=== PATIENT | female | born 1975 | race Caucasian/White ===

== ENCOUNTER 2021-08-30 11:42 | Inpatient (IN) ==
[2021-08-30 14:33] LABS: Basophils # (auto) 0.02 K/uL (0-0.2); Basophils % (auto) 0.1 %; Eosinophils # (auto) 0.04 K/uL (0-0.5); Eosinophils % (auto) 0.3 %; Hematocrit (blood only) 41.7 % (37-47); Hemoglobin 13.9 g/dL (12.0-16.0); Immature Granulocytes # (auto) 0.03 K/uL (0.00-0.02); Immature Granulocytes % (auto) 0.2 %; Lymphocytes # (auto) 1.24 K/uL (1.2-3.4); Lymphocytes % (auto) 8.3 %; Mean Corpuscular Hemoglobin 31.8 pg (25-34); Mean Corpuscular Hgb Conc 33.3 g/dL (32-36); Mean Corpuscular Volume 95.4 fL (80-100); Mean Platelet Volume 10.4 fL (7.4-10.4); Monocytes # (auto) 0.84 K/uL (0.11-0.59); Monocytes % (auto) 5.6 %; Neutrophils # (auto) 12.71 K/uL (1.4-6.5); Neutrophils % (auto) 85.5 %; Platelet Count 350 K/uL (130-400); RDW Standard Deviation 42.2 fL (36.4-46.3); Red Blood Count 4.37 M/uL (4.2-5.4); White Blood Count 14.88 K/uL (4.8-10.8)
--- NOTE | 2021-08-30 14:33 | Emergency Department Note ---
Impression & Plan Acute appendicitis, Abdominal pain, Leukocytosis ED Provider Note NAME: ALEM DEL CID AGE: 45 SEX: F : 1975 ARRIVES VIA: Walk-In INFORMANT: Patient ED PROVIDER(S): Nader Devlin DO CHIEF COMPLAINT: abdominal pain HPI: Patient is a 45-year-old female who presents the ER for 60 hours worth of abdominal pain which is located throughout her entire belly. She denies any chest pain or shortness of breath. She does admit to feeling her heart race last for several minutes and then it resolved. She denies any dysuria urgency or frequency. She does feel slightly sick to her stomach. Pain throughout her belly is a 5 out of 10. She was seen at urgent care and referred in. She was given Bentyl and that has not helped either. Pain can increase to a 7 out of 10. He does feel bubbly and like gas is moving around. It also goes circumferentially around her belly to her back in the same area. ROS: See above HPI for pertinent positives & negatives. A total of 10 systems reviewed and were otherwise negative. PAST MEDICAL HISTORY:See Below PAST SURGICAL HISTORY:See Below FAMILY HISTORY:See Below SOCIAL HISTORY:See Below HOME MEDICATIONS:See Below ALLERGIES:See Below VITALS:See Below PHYSICAL EXAMINATION: GENERAL: Sitting up in bed, alert, well appearing, tearful and disheveled EYE EXAM: normal conjunctiva. OROPHARYNX: no exudate, no erythema, lips, buccal mucosa, and tongue normal and mucous membranes are moist NECK: supple, no nuchal rigidity, no adenopathy, non-tender LUNGS: Clear to auscultation. Normal chest wall mechanics HEART: no murmurs, S1 normal and S2 normal ABDOMEN: abdomen soft, non-tender, normo-active bowel sounds, no masses, no rebound or guarding. BACK: Back is symmetrical on inspection and there is no deformity, no midline tenderness, no CVA tenderness. UPPER EXTREMITIES: upper extremities are grossly normal. LOWER EXTREMITIES: No pitting edema. NEURO EXAM: Normal sensorium, cranial nerves II-XII grossly intact, normal speech, no gross weakness of arms, no gross weakness of legs. MEDICAL DECISION MAKING: Patient is a 45-year-old female who presents the ER for abdominal pain associate with nausea. IV was established blood was obtained. Labs show mild leukocytosis of 14.8 thousand. No significant anemia. BMP along with LFTs were unremarkable. Troponin was negative. Lipase unremarkable. UA was contaminated. Covid was negative. CT abdomen pelvis favors that this likely appendicitis but Dr. Francisco. Recommended ultrasound of the pelvis which was performed and unremarkable. Patient was given IV Zosyn and IV fluids. She declined pain medications. Discussed with general surgery Benny for admission. Triage Nursing notes reviewed. Limited review of prior medical records performed Vital Signs: reviewed and remarkable for tachy Differential diagnosis: Differential diagnoses includes but is not limited to gastritis, peptic ulcer disease, GERD, gallbladder disease, pancreatitis, small bowel obstruction, acute coronary syndrome, pericarditis, ischemic bowel, irritable bowel disease, irritable bowel syndrome, appendicitis, diverticulitis, malignancy, hernia, urinary tract infection, torsion, /ectopic (if female), perforation, trauma, infectious. ER treatment provided: See below Diagnostics interpreted by me: ECG: Sinus tachycardia rate of 109 PVCs Normal axis QTC [address] wave changes in the inferior Cardiac Monitoring: An order was placed for continuous cardiac monitoring. The monitor shows a rate of 102 with sinus rhythm. Laboratory studies: As stated above and show below. Imaging studies: CT abdomen pelvis suggest that this is likely appendicitis but question torsion Ultrasound showed a normal right ovary Consultation(s): Discussed with general surgery who admit the patient Procedures: none Critical Care: None Past Med/Surg History Medical History Hyperacusis of both ears PTSD (post-traumatic stress disorder) Tinnitus of right ear Surgical History History of wisdom tooth extraction Family History Grandfather Hearing loss Hypertension Stroke Father Hypertension Cancer Grandmother Hypertension Cancer Mother Cancer Other Heart disease No family history of adverse response to anesthesia No family history of bleeding disorder Social History Smoking Status: Never smoker Hx Alcohol Use: Yes Alcohol Intake Frequency Comment: 1 Glass w/ Dinner Hx Substance Use: No Preferred Language: Ghanaian Feels Safe at Home: Yes Allergies Allergies Allergy/AdvReac Type Severity Reaction Status Date / Time cat dander Allergy Unknown rash Verified 08/30/21 16:02 house dust mite Allergy Unknown runny nose Verified 08/30/21 16:02 Home Meds Home Medications Medication Instructions Recorded Confirmed acetaminophen 500 mg tablet 1,000 mg PO Q6H PRN 08/30/21 08/30/21 (Tylenol Extra Strength) cetirizine 10 mg tablet (Zyrtec) 10 mg PO DAILY 08/30/21 08/30/21 lactobacillus combination no.4 3 0 mmu cells PO DAILY 08/30/21 08/30/21 billion cell capsule (Probiotic) Previous Rx's Medication Instructions Recorded cholecalciferol (vitamin D3) 25 3,000 unit PO DAILY #30 cap 01/09/21 mcg (1,000 unit) capsule Results & Data (ED) Vital Signs Vital Signs - 24 hr 08/30/21 11:54 08/30/21 19:21 Temperature 37.4 C Temperature Source Temporal Artery Scan Pulse Rate 110 H 66 Respiratory Rate 20 20 Respiratory Effort / Characteristics Non-Labored Respiratory Depth Normal Respiratory Pattern Regular Blood Pressure 121/78 126/74 Blood Pressure Mean 92 91 Pulse Oximetry 96 98 Oxygen Delivery Method Room Air Sepsis Recent Fever Within 48 Hours No Sepsis New/Unexplained Change in Mental Status No Sepsis Action Taken by Nursing No Action Required Laboratory Data Result diagrams: 08/30/21 14:25 08/30/21 14:25 Lab Results 08/30/21 08/30/21 08/30/21 Range/Units 14:25 14:25 14:50 WBC 14.88 H (4.8-10.8) K/uL RBC 4.37 (4.2-5.4) M/uL Hgb 13.9 (12.0-16.0) g/dL Hct 41.7 (37-47) % MCV 95.4 (80-100) fL MCH 31.8 (25-34) pg MCHC 33.3 (32-36) g/dL RDW Std Deviation 42.2 (36.4-46.3) fL RDW Coeff of Amaris 12.0 (11.5-14.5) % Plt Count 350 (130-400) K/uL MPV 10.4 (7.4-10.4) fL Immature Gran % (Auto) 0.2 % Neut % (Auto) 85.5 % Lymph % (Auto) 8.3 % Vigo % (Auto) 5.6 % Eos % (Auto) 0.3 % Baso % (Auto) 0.1 % Neut # (Auto) 12.71 H (1.4-6.5) K/uL Lymph # (Auto) 1.24 (1.2-3.4) K/uL [place] # (Auto) 0.84 H (0.11-0.59) K/uL Eos # (Auto) 0.04 (0-0.5) K/uL Baso # (Auto) 0.02 (0-0.2) K/uL Immature Gran # (Auto) 0.03 H (0.00-0.02) K/uL Sodium 135 L (136-145) mmol/L Potassium 3.6 (3.5-5.1) mmol/L Chloride 100 (98-107) mmol/L Carbon Dioxide 28 (21-32) mmol/L Anion Gap 7.0 (3-11) BUN 9 (7-18) mg/dl Creatinine 0.71 (0.6-1.2) mg/dl Est Cr Clr Drug Dosing 104.5 ml/min Est GFR ( Amer) 117.6 ml/min Est GFR (Non-Af Amer) 101.4 ml/min BUN/Creatinine Ratio 12.6 (10-20) Glucose 97 (70-99) mg/dl Calcium 9.7 (8.5-10.1) mg/dl Total Bilirubin 0.5 (0.2-1) mg/dl AST 12 L (15-37) U/L ALT 22 (12-78) Alkaline Phosphatase 90 (45-117) U/L Troponin I (0-0.045) ng/ml Total Protein 9.2 H (6.4-8.2) gm/dl Albumin 3.8 (3.4-5.0) gm/dl Globulin 5.4 H (2.5-4.0) gm/dl Albumin/Globulin Ratio 0.7 L (0.9-2) Lipase 80 (73-393) U/L Urine Color Dark Yellow Urine Appearance Clear (Clear) Urine pH 5.0 (4.5-7.5) Ur Specific [place] 1.032 H (1.000-1.030) Urine Protein 1+ H (Negative) Urine Glucose (UA) Negative (Negative) Urine Ketones 4+ H (Negative) Urine Blood Negative (Negative) Urine Nitrite Negative (Negative) Urine Bilirubin Negative (Negative) Urine Urobilinogen Negative (Negative) Ur Leukocyte Esterase 1+ H (Negative) Urine WBC (Auto) 10-30 H (0-5) /hpf Urine RBC (Auto) 0-4 (0-4) /hpf U Hyaline Cast (Auto) 10-30 H (0-5) /lpf U Epithel Cells (Auto) 20-30 H (0-5) /lpf Urine Bacteria (Auto) Negative (Negative) Urine Test (Negative) SARS-CoV-2, RNA, NAAT (NEGATIVE) 08/30/21 08/30/21 08/30/21 Range/Units 14:50 15:05 19:17 WBC (4.8-10.8) K/uL RBC (4.2-5.4) M/uL Hgb (12.0-16.0) g/dL Hct (37-47) % MCV (80-100) fL MCH (25-34) pg MCHC (32-36) g/dL RDW Std Deviation (36.4-46.3) fL RDW Coeff of Amaris (11.5-14.5) % Plt Count (130-400) K/uL MPV (7.4-10.4) fL Immature Gran % (Auto) % Neut % (Auto) % Lymph % (Auto) % [place] % (Auto) % Eos % (Auto) % Baso % (Auto) % Neut # (Auto) (1.4-6.5) K/uL Lymph # (Auto) (1.2-3.4) K/uL [place] # (Auto) (0.11-0.59) K/uL Eos # (Auto) (0-0.5) K/uL Baso # (Auto) (0-0.2) K/uL Immature Gran # (Auto) (0.00-0.02) K/uL Sodium (136-145) mmol/L Potassium (3.5-5.1) mmol/L Chloride (98-107) mmol/L Carbon Dioxide (21-32) mmol/L Anion Gap (3-11) BUN (7-18) mg/dl Creatinine (0.6-1.2) mg/dl Est Cr Clr Drug Dosing ml/min Est GFR ( Amer) ml/min Est GFR (Non-Af Amer) ml/min BUN/Creatinine Ratio (10-20) Glucose (70-99) mg/dl Calcium (8.5-10.1) mg/dl Total Bilirubin (0.2-1) mg/dl AST (15-37) U/L ALT (12-78) Alkaline Phosphatase (45-117) U/L Troponin I < 0.015 (0-0.045) ng/ml Total Protein (6.4-8.2) gm/dl Albumin (3.4-5.0) gm/dl Globulin (2.5-4.0) gm/dl Albumin/Globulin Ratio (0.9-2) Lipase (73-393) U/L Urine Color Urine Appearance (Clear) Urine pH (4.5-7.5) Ur Specific [place] (1.000-1.030) Urine Protein (Negative) Urine Glucose (UA) (Negative) Urine Ketones (Negative) Urine Blood (Negative) Urine Nitrite (Negative) Urine Bilirubin (Negative) Urine Urobilinogen (Negative) Ur Leukocyte Esterase (Negative) Urine WBC (Auto) (0-5) /hpf Urine RBC (Auto) (0-4) /hpf U Hyaline Cast (Auto) (0-5) /lpf U Epithel Cells (Auto) (0-5) /lpf Urine Bacteria (Auto) (Negative) Urine Test Negative (Negative) SARS-CoV-2, RNA, NAAT NEGATIVE (NEGATIVE) Administered Medications Discontinued Medications Piperacillin Sod/Tazobactam Sod (Zosyn) 4.5 gm in 120 mls @ 240 mls/hr IV NOW ONE Stop: 08/30/21 16:28 Last Infusion: 08/30/21 16:37 Dose: 0 mls/hr Documented by: [id number] Admin: 08/30/21 16:07 Dose: 240 mls/hr Documented by: [id number] Ioversol (Optiray 320 100ml) 94 ml IV ONCE ONE Stop: 08/30/21 15:21 Last Admin: 08/30/21 15:23 Dose: 94 ml Documented by: [id number] Imaging Data Radiologist's Impression: Abdomen/Pelvis CT 08/30/21 14:30 CT SCAN OF THE ABDOMEN AND PELVIS WITH IV CONTRAST CLINICAL HISTORY: Lower abdominal pain. COMPARISON STUDY: No priors. TECHNIQUE: Following the IV administration of 94 cc of Optiray 320, CT scan of the abdomen and pelvis is performed from the lung bases to the proximal femora. Images are reviewed in the axial, sagittal, and coronal planes. IV contrast was administered without complication. A dose lowering technique was utilized adhering to the principles of ALARA. CT DOSE: 391.92 mGy.cm FINDINGS: Lung bases: The heart is normal in size and without pericardial effusion. The lung bases are clear. Liver: The contrast-enhanced liver is normal in size, contour, and attenuation. There is no intrahepatic biliary ductal dilatation. The hepatic veins and portal veins are patent. Gallbladder: Unremarkable. Spleen: Normal in size and attenuation. Pancreas: Unremarkable. Adrenal glands: Unremarkable. Kidneys: The contrast enhanced kidneys are normal in size and without hydronephrosis. The kidneys enhance symmetrically. A retroverted left renal vein is incidentally noted. Abdominal vasculature: The abdominal aorta is normal in course and caliber. Bowel: No bowel obstruction is seen. A normal appendix is not visualized. The cecum is located in the pelvis. There is an approximately 4 x 3.5 x 3.5 cm round low-attenuation inflammatory process/phlegmon in the right upper pelvis above the cecum seen on image #300. Mild wall thickening of the distal ileum is likely related to adjacent inflammation. Peritoneum: There is no intraperitoneal free air or abdominal ascites. There is a fat-containing umbilical hernia. Lymphadenopathy: Prominent mesenteric lymph nodes in the right lower quadrant measuring up to 9 mm in short axis are likely reactive. No pathologically enlarged lymph nodes are seen in the abdomen or pelvis. Pelvic viscera: The bladder, uterus, and adnexa are normal as visualized noting ovarian follicles. There is a small volume of free fluid in the cul-de-sac. Skeletal structures: No lytic or blastic lesions are seen. There is moderate disc space narrowing with endplate sclerosis and a posterior disc osteophyte complex at L5-S1. IMPRESSION: 1. There is an approximately 4 cm inflammatory/phlegmonous process in the right upper pelvis adjacent to the distal/terminal ileum and above the cecum. A normal appendix is not identified, and this process appears to be discrete from the adjacent right ovary. This is pathologically indeterminant, and is most suspicious for ruptured appendicitis. Other etiologies such as tubo-ovarian pathology are considered less likely differential considerations. No organized/d rainable fluid collection is identified at the time of examination. A pelvic ultrasound could be considered for further assessment of the right ovary. Surgical consultation is advised. 2. No intraperitoneal free air is seen. 3. Additional findings as above. ACT 112: Negative or not required by law. Electronically signed by: Bill Edwards M.D. 08/30/2021 3:57 PM Pelvis Ultrasound 08/30/21 15:59 ULTRASOUND OF THE PELVIS CLINICAL HISTORY: Pelvic pain. Inflammatory process in the right pelvis seen by CT. COMPARISON STUDY: Pelvic CT dated 08/30/2021. TECHNIQUE: Real-time, grayscale, and color flow sonography of the pelvis is performed both transabdominally and endovaginally. Images are reviewed in the transverse and longitudinal planes. The endovaginal examination is performed for better assessment of the ovaries and adnexa. FINDINGS: Uterus: The uterus is normal in size and echotexture, measuring 7.7 x 3.6 x 3.3 cm. Trace fluid is noted within the endocervical canal. Endometrium: The endometrium is mildly thickened and heterogeneous, measuring up to 1.4 cm. Ovaries: The ovaries are normal in size and morphology. The right ovary measures 3.7 x 1.2 x 1.3 cm and the left ovary measures 3.1 x 1.9 x 2.5 cm. Follicles are noted in the left ovary, with a dominant follicle measuring up to 1.5 cm. Normal Doppler waveforms are shown within both ovaries. Pelvis: There is a small volume of free fluid in the cul-de-sac. A complex hypoechoic collection is suggested in the right adnexa measuring 3.8 x 3.4 x 3.9 cm. IMPRESSION: 1. There is a complex hypoechoic collection identified in the right adnexa measuring up to 3.9 cm. This corresponds to the inflammatory process/phlegmon seen by CT, and this is discrete from the adjacent right ovary. When correlated with today's CT imaging a ruptured appendicitis is favored. 2. The ovaries are normal in appearance. 3. The endometrium is mildly thickened and heterogeneous measuring up to 1.4 cm. 4. A small volume of free fluid is seen in the cul-de-sac. ACT 112: Negative or not required by law. Electronically signed by: Bill Edwards M.D. 08/30/2021 5:35 PM Transvaginal US 08/30/21 15:59 ULTRASOUND OF THE PELVIS CLINICAL HISTORY: Pelvic pain. Inflammatory process in the right pelvis seen by CT. COMPARISON STUDY: Pelvic CT dated 08/30/2021. TECHNIQUE: Real-time, grayscale, and color flow sonography of the pelvis is performed both transabdominally and endovaginally. Images are reviewed in the transverse and longitudinal planes. The endovaginal examination is performed for better assessment of the ovaries and adnexa. FINDINGS: Uterus: The uterus is normal in size and echotexture, measuring 7.7 x 3.6 x 3.3 cm. Trace fluid is noted within the endocervical canal. Endometrium: The endometrium is mildly thickened and heterogeneous, measuring up to 1.4 cm. Ovaries: The ovaries are normal in size and morphology. The right ovary measures 3.7 x 1.2 x 1.3 cm and the left ovary measures 3.1 x 1.9 x 2.5 cm. Follicles are noted in the left ovary, with a dominant follicle measuring up to 1.5 cm. Normal Doppler waveforms are shown within both ovaries. Pelvis: There is a small volume of free fluid in the cul-de-sac. A complex hypoechoic collection is suggested in the right adnexa measuring 3.8 x 3.4 x 3.9 cm. IMPRESSION: 1. There is a complex hypoechoic collection identified in the right adnexa measuring up to 3.9 cm. This corresponds to the inflammatory process/phlegmon seen by CT, and this is discrete from the adjacent right ovary. When correlated with today's CT imaging a ruptured appendicitis is favored. 2. The ovaries are normal in appearance. 3. The endometrium is mildly thickened and heterogeneous measuring up to 1.4 cm. 4. A small volume of free fluid is seen in the cul-de-sac. ACT 112: Negative or not required by law. Electronically signed by: Bill Edwards M.D. 08/30/2021 5:35 PM Discharge Plan Visit Data Chief Complaint: Abdominal Pain Stated Complaint: ABD/BACK PAIN, BLOATING ED Provider: Nader Devlin Discharge Problem: Acute appendicitis, Abdominal pain, Leukocytosis Forms Stand Alone Forms: My [facility] [place] [employer] Prescriptions Prescriptions: No Action cholecalciferol (vitamin D3) 25 mcg (1,000 unit) capsule 3,000 unit PO DAILY Qty: 30 RF: 0 cetirizine [Zyrtec] 10 mg Tablet 10 mg PO DAILY RF: 0 acetaminophen [Tylenol Extra Strength] 500 mg Tablet 1,000 mg PO Q6H PRN (Reason: Pain) RF: 0 Probiotic 3 billion cell Capsule 0 mmu cells PO DAILY RF: 0 Referrals Referrals: Chi Alves MD [Primary Care Provider] - Discharge Problem: Acute appendicitis Qualifiers: Acute appendicitis type: unspecified acute appendicitis type Qualified Code(s): K35.80 - Unspecified acute appendicitis Abdominal pain Qualifiers: Abdominal location: unspecified location Qualified Code(s): R10.9 - Unspecified abdominal pain Leukocytosis Qualifiers: Leukocytosis type: unspecified Qualified Code(s): D72.829 - Elevated white blood cell count, unspecified
[2021-08-30 14:55] LABS: Albumin Level 3.8 gm/dl (3.4-5.0); BUN Creatinine Ratio 12.6 (10-20); Calcium 9.7 mg/dl (8.5-10.1); Creatinine Clr Calc Pharmacy 104.5 ml/min; Est GFR (African American) 117.6 ml/min; Est GFR (Non-African American) 101.4 ml/min; Potassium 3.6 mmol/L (3.5-5.1)
[2021-08-30 14:58] LABS: Albumin Globulin Ratio 0.7 (0.9-2); Bilirubin,Total 0.5 mg/dl (0.2-1); Globulin 5.4 gm/dl (2.5-4.0); Total Protein 9.2 gm/dl (6.4-8.2)
[2021-08-30 15:14] LABS: Appearance Urine Clear (Clear); Bacteria Urine Automated Negative (Negative); Bilirubin Urine Negative (Negative); Blood Urine Negative (Negative); Color Urine Dark Yellow; Epithelial Cell Urine Auto 20-30 /lpf (0-5); Glucose Urine UA Negative (Negative); Ketones Urine 4+ (Negative); Leukocyte Esterase Urine 1+ (Negative); Nitrite Urine Negative (Negative); Protein Urine 1+ (Negative); RBC Urine Automated 0-4 /hpf (0-4); Specific Gravity Urine 1.032 (1.000-1.030); Urobilinogen Urine Negative (Negative)
[2021-08-30] MEDS ORDERED: OPTIRAY 320 100ml IV ONE (15:20)
[2021-08-30] MEDS ORDERED: PIPERACILLIN/TAZOBACTAM 4.5 GM/120 ML BAG IV ONE (15:59)
[2021-08-30] MEDS ORDERED: PIPERACILL/TAZOBAC CONSULT ACTIVE PRN ×2 (15:59→21:29)
--- NOTE | 2021-08-30 15:59 | CT Scan Report ---
CT SCAN OF THE ABDOMEN AND PELVIS WITH IV CONTRAST CLINICAL HISTORY: Lower abdominal pain. COMPARISON STUDY: No priors. TECHNIQUE: Following the IV administration of 94 cc of Optiray 320, CT scan of the abdomen and pelvi s is performed from the lung bases to the proximal femora. Images are reviewed in the axial, sagittal , and coronal planes. IV contrast was administered without complication. A dose lowering technique wa s utilized adhering to the principles of ALARA. CT DOSE: 391.92 mGy.cm FINDINGS: Lung bases: The heart is normal in size and without pericardial effusion. The lung bases are clear. Liver: The contrast-enhanced liver is normal in size, contour, and attenuation. There is no intrahepa tic biliary ductal dilatation. The hepatic veins and portal veins are patent. Gallbladder: Unremarkable. Spleen: Normal in size and attenuation. Pancreas: Unremarkable. Adrenal glands: Unremarkable. Kidneys: The contrast enhanced kidneys are normal in size and without hydronephrosis. The kidneys enh ance symmetrically. A retroverted left renal vein is incidentally noted. Abdominal vasculature: The abdominal aorta is normal in course and caliber. Bowel: No bowel obstruction is seen. A normal appendix is not visualized. The cecum is located in the pelvis. There is an approximately 4 x 3.5 x 3.5 cm round low-attenuation inflammatory process/phlegm on in the right upper pelvis above the cecum seen on image #300. Mild wall thickening of the distal i leum is likely related to adjacent inflammation. Peritoneum: There is no intraperitoneal free air or abdominal ascites. There is a fat-containing umbi lical hernia. Lymphadenopathy: Prominent mesenteric lymph nodes in the right lower quadrant measuring up to 9 mm in short axis are likely reactive. No pathologically enlarged lymph nodes are seen in the abdomen or pe lvis. Pelvic viscera: The bladder, uterus, and adnexa are normal as visualized noting ovarian follicles. Th ere is a small volume of free fluid in the cul-de-sac. Skeletal structures: No lytic or blastic lesions are seen. There is moderate disc space narrowing wit h endplate sclerosis and a posterior disc osteophyte complex at L5-S1. IMPRESSION: 1. There is an approximately 4 cm inflammatory/phlegmonous process in the right upper pelvis adjacent to the distal/terminal ileum and above the cecum. A normal appendix is not identified, and this proc ess appears to be discrete from the adjacent right ovary. This is pathologically indeterminant, and i s most suspicious for ruptured appendicitis. Other etiologies such as tubo-ovarian pathology are cons idered less likely differential considerations. No organized/drainable fluid collection is identified at the time of examination. A pelvic ultrasound could be considered for further assessment of the ri ght ovary. Surgical consultation is advised. 2. No intraperitoneal free air is seen. 3. Additional findings as above. ACT 112: Negative or not required by law. Electronically signed by: Bill Edwards M.D. 08/30/2021 3:57 PM
[2021-08-30 16:07] LABS: Pregnancy Test, Urine Negative (Negative)
--- NOTE | 2021-08-30 17:37 | Ultrasound Report ---
ULTRASOUND OF THE PELVIS CLINICAL HISTORY: Pelvic pain. Inflammatory process in the right pelvis seen by CT. COMPARISON STUDY: Pelvic CT dated 08/30/2021. TECHNIQUE: Real-time, grayscale, and color flow sonography of the pelvis is performed both transabdom inally and endovaginally. Images are reviewed in the transverse and longitudinal planes. The endovagi nal examination is performed for better assessment of the ovaries and adnexa. FINDINGS: Uterus: The uterus is normal in size and echotexture, measuring 7.7 x 3.6 x 3.3 cm. Trace fluid is no radha within the endocervical canal. Endometrium: The endometrium is mildly thickened and heterogeneous, measuring up to 1.4 cm. Ovaries: The ovaries are normal in size and morphology. The right ovary measures 3.7 x 1.2 x 1.3 cm a nd the left ovary measures 3.1 x 1.9 x 2.5 cm. Follicles are noted in the left ovary, with a dominant follicle measuring up to 1.5 cm. Normal Doppler waveforms are shown within both ovaries. Pelvis: There is a small volume of free fluid in the cul-de-sac. A complex hypoechoic collection is s uggested in the right adnexa measuring 3.8 x 3.4 x 3.9 cm. IMPRESSION: 1. There is a complex hypoechoic collection identified in the right adnexa measuring up to 3.9 cm. Th is corresponds to the inflammatory process/phlegmon seen by CT, and this is discrete from the adjacen t right ovary. When correlated with today's CT imaging a ruptured appendicitis is favored. 2. The ovaries are normal in appearance. 3. The endometrium is mildly thickened and heterogeneous measuring up to 1.4 cm. 4. A small volume of free fluid is seen in the cul-de-sac. ACT 112: Negative or not required by law. Electronically signed by: Bill Edwards M.D. 08/30/2021 5:35 PM
[2021-08-30] MEDS ORDERED: ONDANSETRON INJ 2 MG/ML 2 ML VIAL IV PRN (21:29)
[2021-08-30] MEDS ORDERED: oxyCODONE HCL IR 5 MG TAB (IMMEDIATE RELEASE) PO PRN ×2 (21:29)
[2021-08-30] MEDS ORDERED: ACETAMINOPHEN 325 MG TAB PO PRN (21:29)
[2021-08-30] MEDS ORDERED: MoRPHine SULFATE 2 MG/ML CARP IV PRN (21:29)
[2021-08-30] MEDS: SODIUM CHLORIDE 0.9% 1000ML 1,000 ML IV SCH (21:39)
--- NOTE | 2021-08-30 22:02 | History & Physical Report ---
Date of Service August 30, 2021 Assessment & Plan (1) Acute appendicitis: Plan: Due to the patient's labs, imaging, and clinical symptoms she has been admitted to the hospital. We will proceed as follows: Patient will be made n.p.o. Hydration with IV fluid be provided Analgesics will be made available Antiemetics were made available Her labs will be followed We will commence antibiotics in the form of Zosyn I discussed with the patient that it looks like she likely has a perforated appendicitis. In the short-term I discussed her that would like to treat this infection medically has a more urgent surgical intervention may require in addition to an appendectomy resection of part of her colon which we would potentially be able to avoid if we can successfully treat her appendicitis medically. Further recommendations will be made based on her clinical course as it unfolds. We will use SCDs for DVT prevention for the present time. We will avoid chemical means until we are certain no surgical intervention is required Patient be a level 1 full code Admission and Anticipated Discharge Date Admission Date: August 30, 2021 History of Present Illness Chief Complaint: "I have abdominal pain" Primary Care Provider: Chi Alves MD This is a 45-year-old female who presented to [facility] emergency department secondary to abdominal pain. Patient notes that the abdominal pain began approximately 3 days ago. Patient said that she ate some foods while she was on holiday vacation that she normally does not eat and felt that this was contributing to her abdominal pain so she did not initially seek medical attention. She said that the pain did not subside and she subsequently developed a fever as high as 101. She denies any nausea vomiting. Because of her ongoing symptoms and fever though she presented to [facility] emergency department. Patient notes that she has never had any abdominal surgeries in the past. In the emergency department patient had labs and imaging which I independently reviewed. CBC showed white blood cell count was elevated 14.8. Hemoglobin, hematocrit, and platelet count are all within normal range. Chemistry profile showed sodium was 135. Potassium, BUN, and creatinine were all within normal range. There is no significant elevation of her LFTs or lipase. A urine test was noted to be negative. Patient did have a urinalysis where she was noted to have 1+ leukocyte Estrace. There were 10-30 white blood cells per high-power field. There is no bacteria noted on this urine specimen. A CT scan of the abdomen and pelvis was performed. This showed a 4 cm phlegmonous process in the right pelvis adjacent to the terminal ileum which was felt to be suspicious for a ruptured appendicitis. A pelvic ultrasound was performed and this showed a hypoechoic collection near the right adnexa measuring 3.9 cm which corresponded to the inflammatory/phlegmonous process noted on CT scan. At the time of my interview the patient was resting comfortably in bed and she was in no distress. Allergies Allergy/AdvReac Type Severity Reaction Status Date / Time cat dander Allergy Unknown rash Verified 08/30/21 16:02 house dust mite Allergy Unknown runny nose Verified 08/30/21 16:02 Home Medications Medication Instructions Recorded Confirmed Type cholecalciferol (vitamin D3) 25 3,000 unit PO DAILY #30 cap 01/09/21 08/30/21 Rx mcg (1,000 unit) capsule acetaminophen 500 mg tablet 1,000 mg PO Q6H PRN 08/30/21 08/30/21 History (Tylenol Extra Strength) cetirizine 10 mg tablet (Zyrtec) 10 mg PO DAILY 08/30/21 08/30/21 History lactobacillus combination no.4 3 0 mmu cells PO DAILY 08/30/21 08/30/21 History billion cell capsule (Probiotic) Past Med/Surg History Medical History Hyperacusis of both ears PTSD (post-traumatic stress disorder) Tinnitus of right ear Intermittent Surgical History History of wisdom tooth extraction Family History Grandfather Hearing loss Hypertension Stroke Father Hypertension Cancer Grandmother Hypertension Cancer Mother Cancer Other Heart disease No family history of adverse response to anesthesia No family history of bleeding disorder Social History Smoking Status: Never smoker Hx Alcohol Use: Yes Alcohol type: wine Alcohol Intake Frequency Comment: 1 Glass w/ Dinner Hx Substance Use: No Preferred Language: Maori Communication Ability: Effective Consumer Experience Consultant Required: No Beliefs That Will Affect Care: None marital status: Single Current Living Situation: Alone Other Information That Helps Us Care for You: No Feels Safe at Home: Yes Safety Concerns: Feels Safe At This Time Assistive Devices: None Review of Systems Constitutional: + fever; no chills Eyes: no diplopia Ear, Nose, Mouth, Throat: no ear pain Respiratory: no cough and no dyspnea Cardiovascular: no chest pain Gastrointestinal: + abdominal pain; no nausea and no vomiting Genitourinary: no dysuria Musculoskeletal: no back pain Integumentary: no rash Neurologic: no localized weakness Physical Exam Constitutional: WD/WN, vitals as above Eyes: no conjunctival abnormality ENMT: Ears: no external ear abnormality Mouth: no oropharynx abnormality Neck: trachea midline Respiratory: normal respiratory effort; no respiratory distress and no labored breathing Cardiovascular: Rate/Rhythm: regular rate and regular rhythm Gastrointestinal (Abdomen): Abdomen is soft and nondistended. There is no rebound tenderness or guarding. Pain was noted with deep palpation in the right lower quadrant over McBurney's point Musculoskeletal: No calf tenderness Skin: no rashes Neurologic: moves all extremities Psychiatric: A+Ox3, euthymic affect Results & Data Results & Data ([facility]) Vital Signs (Past 12 Hours) Vital Signs Temp Pulse Resp BP Pulse Ox 08/30/21 21:00 116/78 99 08/30/21 20:53 99 08/30/21 20:40 99 08/30/21 20:30 114/88 99 08/30/21 20:20 99 08/30/21 20:10 99 08/30/21 20:00 111/78 100 08/30/21 19:51 97 08/30/21 19:21 66 20 126/74 98 08/30/21 11:54 37.4 C 110 H 20 121/78 96 Code Status & VTE Plan VTE Prophylaxis Plan VTE Prophylaxis will be ordered: Yes Supervising Physician Co-Signing Physician Notes I personally saw and evaluated the patient with Kwame Neal PA-C and agree with the assessment and plan 45-year-old female with a perforated appendicitis with phlegmon We will admit the patient to the surgical service Keep n.p.o., give IV fluids We will start Zosyn We will see how she progresses in the next 48 hours or so, but will try to avoid an operation as she would likely require at least a partial colectomy if we needed to operate PG Care Time/CCT Total # of Minutes Spent Total Time Spent with Patient: Total time spent is greater than 50% in coordination of care (as documented) at patient's floor/unit and/or counseling patient: Coding Level of Care Code 91815 Initial Inpt Care Lvl 3 Diagnoses Acute appendicitis K35.80 Acute appendicitis type: unspecified acute appendicitis type (1) Acute appendicitis Acute appendicitis type: unspecified acute appendicitis type Qualified Code(s): K35.80 - Unspecified acute appendicitis
[2021-08-30] MEDS: ACETAMINOPHEN 1,000 MG/100 ML VIAL IV PRN (22:42)
[2021-08-30] MEDS: PIPERACILLIN/TAZOBACTAM 3.375 GM in DEXTROSE 5% 100 ML IV SCH (23:00)
[2021-08-31] MEDS: PIPERACILLIN/TAZOBACTAM 3.375 GM in DEXTROSE 5% 100 ML IV SCH ×3 (05:33→21:01)
[2021-08-31] MEDS: SODIUM CHLORIDE 0.9% 1000ML 1,000 ML IV SCH ×3 (05:33→22:13)
[2021-08-31 06:04] LABS: Basophils # (auto) 0.02 K/uL (0-0.2); Basophils % (auto) 0.2 %; Eosinophils # (auto) 0.06 K/uL (0-0.5); Eosinophils % (auto) 0.5 %; Hematocrit (blood only) 38.1 % (37-47); Hemoglobin 12.8 g/dL (12.0-16.0); Immature Granulocytes # (auto) 0.02 K/uL (0.00-0.02); Immature Granulocytes % (auto) 0.2 %; Lymphocytes % (auto) 11.2 %; Mean Corpuscular Hemoglobin 31.4 pg (25-34); Mean Corpuscular Hgb Conc 33.6 g/dL (32-36); Mean Corpuscular Volume 93.6 fL (80-100); Mean Platelet Volume 10.6 fL (7.4-10.4); Monocytes # (auto) 1.01 K/uL (0.11-0.59); Monocytes % (auto) 8.7 %; Neutrophils # (auto) 9.19 K/uL (1.4-6.5); Neutrophils % (auto) 79.2 %; Platelet Count 299 K/uL (130-400); Red Blood Count 4.07 M/uL (4.2-5.4)
[2021-08-31 06:31] LABS: BUN Creatinine Ratio 10.3 (10-20); Calcium 9.1 mg/dl (8.5-10.1); Creatinine Clr Calc Pharmacy 132.5 ml/min; Est GFR (African American) 128.7 ml/min; Potassium 3.5 mmol/L (3.5-5.1)
[2021-08-31] MEDS: ACETAMINOPHEN 1,000 MG/100 ML VIAL IV PRN ×3 (07:03→22:13)
--- NOTE | 2021-08-31 08:37 | Surgery Progress Note ---
Date of Service August 31, 2021 Assessment & Plan (1) Acute appendicitis: Plan: perforated appendicitis WBC improved, afebrile remains stable can start diet cont Zosyn Admission and Anticipated Discharge Date Admission Date: August 30, 2021 Supervising Physician Co-Signing Physician Notes I personally saw and evaluated the patient with Brodie Michaels PA-C and agree with the assessment and plan 45-year-old female with a perforated appendicitis with phlegmon Trial clear liquids We will Continue Zosyn Overall the patient feels better with less pain and her white count is trending downward without any fevers We will continue nonoperative management of her perforated appendicitis Subjective Ofirmev for pain but overall about 20% better, no fever, Physical Exam Gastrointestinal (Abdomen): Inspection/Auscultation: abdomen not distended Percussion/Palpation: + abdomen tender and abdomen soft Results & Data ([facility]) Vital Signs (Past 12 Hours) Vital Signs Temp Pulse Resp BP BP BP Pulse Ox 08/31/21 07:33 37.0 C 103 H 16 100/69 100 08/30/21 23:45 37 C 95 H 18 120/71 97 08/30/21 21:30 37.1 C 105 H 18 130/83 98 08/30/21 21:25 37.1 C 111 H 18 130/80 98 08/30/21 21:00 116/78 99 08/30/21 20:53 99 08/30/21 20:40 99 PG Care Time/CCT Total # of Minutes Spent Total Time Spent with Patient: Total time spent is greater than 50% in coordination of care (as documented) at patient's floor/unit and/or counseling patient: Coding Level of Care Code 58529 Subseq Hosp Care Lvl 1 Diagnoses Acute appendicitis K35.80 Acute appendicitis type: unspecified acute appendicitis type (1) Acute appendicitis Acute appendicitis type: unspecified acute appendicitis type Qualified Code(s): K35.80 - Unspecified acute appendicitis
[2021-08-31] MEDS ORDERED: FLUARIX QUADRIVALENT 0.5 ML SYR IM ONE (09:00)
--- NOTE | 2021-08-31 13:00 | Electrocardiogram Report ---
Test Reason : Blood Pressure : / mmHG Vent. Rate : 109 BPM Atrial Rate : 109 BPM P-R Int : 120 ms QRS Dur : 074 ms QT Int : 330 ms P-R-T Axes : 055 076 027 degrees QTc Int : 444 ms Sinus tachycardia with occasional Premature ventricular complexes Left atrial enlargement Nonspecific ST abnormality Abnormal ECG No previous ECGs available Confirmed by Jason Vo ([id number]) on 08/31/2021 1:00:12 PM Referred By: REFERRED SELF Confirmed By:Jason Vo
[2021-09-01] MEDS: PIPERACILLIN/TAZOBACTAM 3.375 GM in DEXTROSE 5% 100 ML IV SCH ×3 (05:34→21:00)
[2021-09-01] MEDS: SODIUM CHLORIDE 0.9% 1000ML 1,000 ML IV SCH ×2 (05:34→14:00)
[2021-09-01] MEDS: ACETAMINOPHEN 1,000 MG/100 ML VIAL IV PRN (06:17)
--- NOTE | 2021-09-01 08:22 | Surgery Progress Note ---
Date of Service September 01, 2021 Assessment & Plan (1) Acute appendicitis: Plan: perforated appendicitis improving labs pending advance diet cont Zosyn Admission and Anticipated Discharge Date Admission Date: August 30, 2021 Supervising Physician Co-Signing Physician Notes I personally saw and evaluated the patient with Brodie Michaels PA-C and agree with the assessment and plan 45-year-old female with a perforated appendicitis with phlegmon Advance diet We will Continue Zosyn She continues to feel better and her white count is 11 We will continue nonoperative management of her perforated appendicitis She may be ready to be discharged in 1 or 2 days pending her progress Subjective intermittent pain more localized to RLQ, some flatus, tolerating clears, no fevers Physical Exam Constitutional: WD/WN, vitals as above Gastrointestinal (Abdomen): Inspection/Auscultation: + abdomen distended (minimal) Percussion/Palpation: + abdomen tender (minimal RLQ) and abdomen soft Results & Data ([facility]) Vital Signs (Past 12 Hours) Vital Signs Temp Pulse Resp BP Pulse Ox 09/01/21 07:36 36.9 C 90 16 101/69 96 08/31/21 22:18 36.8 C 98 H 18 118/68 99 PG Care Time/CCT Total # of Minutes Spent Total Time Spent with Patient: Total time spent is greater than 50% in coordination of care (as documented) at patient's floor/unit and/or counseling patient: Coding Level of Care Code 77589 Subseq Hosp Care Lvl 1 Diagnoses Acute appendicitis K35.80 Acute appendicitis type: unspecified acute appendicitis type (1) Acute appendicitis Acute appendicitis type: unspecified acute appendicitis type Qualified Code(s): K35.80 - Unspecified acute appendicitis
[2021-09-01 09:26] LABS: Basophils # (auto) 0.02 K/uL (0-0.2); Basophils % (auto) 0.2 %; Eosinophils # (auto) 0.06 K/uL (0-0.5); Eosinophils % (auto) 0.5 %; Hematocrit (blood only) 36.7 % (37-47); Hemoglobin 12.1 g/dL (12.0-16.0); Immature Granulocytes # (auto) 0.03 K/uL (0.00-0.02); Immature Granulocytes % (auto) 0.3 %; Lymphocytes # (auto) 1.09 K/uL (1.2-3.4); Lymphocytes % (auto) 9.4 %; Mean Corpuscular Hemoglobin 31.1 pg (25-34); Mean Corpuscular Volume 94.3 fL (80-100); Mean Platelet Volume 10.6 fL (7.4-10.4); Monocytes # (auto) 0.69 K/uL (0.11-0.59); Monocytes % (auto) 5.9 %; Neutrophils # (auto) 9.72 K/uL (1.4-6.5); Neutrophils % (auto) 83.7 %; Platelet Count 330 K/uL (130-400); RDW Coefficient of Variation 12.1 % (11.5-14.5); Red Blood Count 3.89 M/uL (4.2-5.4); White Blood Count 11.61 K/uL (4.8-10.8)
[2021-09-01] MEDS: IBUPROFEN 600 MG TAB PO SCH ×3 (11:26→21:01)
[2021-09-01] MEDS: ACETAMINOPHEN 500 MG TAB PO PRN (22:20)
[2021-09-02] MEDS: IBUPROFEN 600 MG TAB PO SCH ×2 (03:16→09:20)
[2021-09-02] MEDS: SODIUM CHLORIDE 0.9% 1000ML 1,000 ML IV SCH (03:16)
[2021-09-02] MEDS: PIPERACILLIN/TAZOBACTAM 3.375 GM in DEXTROSE 5% 100 ML IV SCH ×2 (05:16→12:26)
[2021-09-02] MEDS: ACETAMINOPHEN 500 MG TAB PO PRN (06:16)
--- NOTE | 2021-09-02 09:06 | Surgery Progress Note ---
Date of Service September 02, 2021 Assessment & Plan (1) Acute appendicitis: Plan: Patient here with perforated appendicitis VSS, afebrile. AM labs pending Tolerating a regular diet, pain controlled, no n/v Mild discomfort to palpation in the RLQ, overall improved + bowel function. She has been ambulating Will f/u on WBC this AM, if okay and patient feels okay she may be stable for discharge to home this afternoon on a course of po abx Will need f/u with Dr. Rojas in clinic within a couple weeks Admission and Anticipated Discharge Date Admission Date: August 30, 2021 Supervising Physician Co-Signing Physician Notes I personally saw and evaluated the patient with Naz Marcos PA-C and agree with the assessment and plan 45-year-old female with a perforated appendicitis with phlegmon, improving Low fiber diet We will Continue Zosyn, transition to 10 days of Augmentin upon discharge She continues to feel better and her white count is normal We will continue nonoperative management of her perforated appendicitis She is tolerating a diet without fevers and increased pain, she is stable for discharge home with follow-up with me in 2 weeks Subjective Patient is feeling fairly well this AM. Tolerating a regular diet, denies n/v. She is passing gas and having BM's. Reports her pain is improving. No fevers. Has been ambulating. Physical Exam Physical Exam: awake/alert Gastrointestinal (Abdomen): Percussion/Palpation: + abdomen tender (some discomfort to palpation in the RLQ) and abdomen soft Results & Data ([facility]) Vital Signs (Past 12 Hours) Vital Signs Temp Pulse Resp BP BP Pulse Ox 09/02/21 07:27 36.7 C 90 16 116/79 100 09/01/21 22:11 36.8 C 87 16 109/75 97 PG Care Time/CCT Total # of Minutes Spent Total Time Spent with Patient: Total time spent is greater than 50% in coordination of care (as documented) at patient's floor/unit and/or counseling patient: Coding Level of Care Code 97132 Subseq Hosp Care Lvl 1 Diagnoses Acute appendicitis K35.80 Acute appendicitis type: unspecified acute appendicitis type (1) Acute appendicitis Acute appendicitis type: unspecified acute appendicitis type Qualified Code(s): K35.80 - Unspecified acute appendicitis
[2021-09-02 09:09] LABS: Basophils # (auto) 0.03 K/uL (0-0.2); Basophils % (auto) 0.3 %; Eosinophils # (auto) 0.14 K/uL (0-0.5); Eosinophils % (auto) 1.4 %; Hematocrit (blood only) 38.5 % (37-47); Hemoglobin 12.7 g/dL (12.0-16.0); Immature Granulocytes # (auto) 0.02 K/uL (0.00-0.02); Immature Granulocytes % (auto) 0.2 %; Lymphocytes # (auto) 1.11 K/uL (1.2-3.4); Mean Corpuscular Hemoglobin 31.4 pg (25-34); Mean Corpuscular Volume 95.3 fL (80-100); Mean Platelet Volume 10.1 fL (7.4-10.4); Monocytes # (auto) 0.57 K/uL (0.11-0.59); Monocytes % (auto) 5.6 %; Neutrophils # (auto) 8.26 K/uL (1.4-6.5); Neutrophils % (auto) 81.5 %; Platelet Count 338 K/uL (130-400); RDW Coefficient of Variation 12.2 % (11.5-14.5); RDW Standard Deviation 42.2 fL (36.4-46.3); Red Blood Count 4.04 M/uL (4.2-5.4); White Blood Count 10.13 K/uL (4.8-10.8)
--- NOTE | 2021-09-04 12:09 | Discharge Summary ---
Date of Service September 04, 2021 Admission HPI Per Admitting Provider This is a 45-year-old female who presented to [facility] emergency department secondary to abdominal pain. Patient notes that the abdominal pain began approximately 3 days ago. Patient said that she ate some foods while she was on holiday vacation that she normally does not eat and felt that this was contributing to her abdominal pain so she did not initially seek medical attention. She said that the pain did not subside and she subsequently developed a fever as high as 101. She denies any nausea vomiting. Because of her ongoing symptoms and fever though she presented to [facility] emergency department. Patient notes that she has never had any abdominal surgeries in the past. In the emergency department patient had labs and imaging which I independently reviewed. CBC showed white blood cell count was elevated 14.8. Hemoglobin, hematocrit, and platelet count are all within normal range. Chemistry profile showed sodium was 135. Potassium, BUN, and creatinine were all within normal range. There is no significant elevation of her LFTs or lipase. A urine test was noted to be negative. Patient did have a urinalysis where she was noted to have 1+ leukocyte Estrace. There were 10-30 white blood cells per high-power field. There is no bacteria noted on this urine specimen. A CT scan of the abdomen and pelvis was performed. This showed a 4 cm phlegmonous process in the right pelvis adjacent to the terminal ileum which was felt to be suspicious for a ruptured appendicitis. A pelvic ultrasound was performed and this showed a hypoechoic collection near the right adnexa measuring 3.9 cm which corresponded to the inflammatory/phlegmonous process noted on CT scan. At the time of my interview the patient was resting comfortably in bed and she was in no distress. Principal Diagnosis perforated appendicitis Discharge Exam awake/alert Gastrointestinal (Abdomen) Inspection/Auscultation: abdomen not distended Percussion/Palpation: + abdomen tender (mild RLQ ttp) and abdomen soft Discharge Data Allergies Allergy/AdvReac Type Severity Reaction Status Date / Time cat dander Allergy Unknown rash Verified 08/30/21 16:02 house dust mite Allergy Unknown runny nose Verified 08/30/21 16:02 Consultations 08/30/21 17:33 ED Decision to Admit Stat Ordered Studies 08/30/21 14:30 CT abd pelvis IV con only Stat 08/30/21 15:59 US pelvic complete Stat US transvaginal Stat Hospital Course (1) Acute appendicitis: This is a 45y F who presented to the [facility] ED on 08/30/21 with complaints of abdominal pain. Workup with a CT a/p revealed findings concerning for acute perforated appendicitis. WBC 14.8. Discussions in place and she was admitted under the surgical service for ongoing monitoring. She was started on IV zosyn and IVF continued. Her diet was slowly advanced as she clinically improved and started to have bowel function. Pain was managed with prn pain meds and continued to improve throughout her stay. On 09/02 patient's WBC down to 10, patient afebrile with stable vitals. Abdominal pain improved and patient tolerating a diet with + bowel function. She was deemed stable for discharge to home on a course of po abx with plans to follow up in surgery clinic within 2 weeks. Total Time Total Time Spent Total Time Spent (In Minutes): 15 Discharge Plan Discharge Items Patient Disposition: Home - Self-Care Reason For Visit: PERFORATED APPENDICITIS Discharge Diagnosis: perforated appendicitis Activity: Per Instructions section Lifting: Gradually increase as tolerated Bathing: No limitations Exercise/Sports: Gradually increase as tolerated Driving/Machine Use: Resume 1 day after discharge Non-emergency contact: Surgeon Call non-emergency contact if: you have any medication questions, your symptoms worsen, your pain is not controlled, your pain is concerning for you, you have a fever and your temperature is above 101.5 Follow-up/Referrals: Benny Rojas DO [Physician] - 09/17/21 8:45 am (Please call to schedule follow up in clinic within 2 weeks) Chi Alves MD [Primary Care Provider] - Diet: Regular Addtl Attending Provider Instructions: Please complete the full course of antibiotic prescribed to you You may take Tylenol and/or Ibuprofen if needed for pain You should continue a low fiber diet for the next 2 weeks Pending Studies at Discharge: No Stand-Alone Forms: My [employer], Smoking Cessation Medications and DC Order Prescriptions: New amoxicillin-pot clavulanate [Augmentin] 875-125 mg tablet 1 tab PO Q12H Qty: 20 RF: 0 Continued cholecalciferol (vitamin D3) 25 mcg (1,000 unit) capsule 3,000 unit PO DAILY Qty: 30 RF: 0 cetirizine [Zyrtec] 10 mg Tablet 10 mg PO DAILY RF: 0 acetaminophen [Tylenol Extra Strength] 500 mg Tablet 1,000 mg PO Q6H PRN (Reason: Pain) RF: 0 Probiotic 3 billion cell Capsule 0 mmu cells PO DAILY RF: 0 Discharge Orders: Discharge Order (Routine); Ordered 09/02/21 Ordered By: Naz Duke/Other Patient Handouts: Low-Fiber Diet Admission Data Admit Date/Time: 08/30/21 17:56 Attending Provider: Benny Rojas Admit Provider: Benny Rojas Primary Care Provider: Chi Alves Other Providers: Benny Rojas Other Interventions: Discharge Summary Assessment (RN) Last Done: 09/02/21 10:05 Coding Level of Care Code D/C DAY MANAGEMENT <30 MINS Diagnoses Acute appendicitis K35.80 Acute appendicitis type: unspecified acute appendicitis type
== END 2021-09-02 13:44 | disposition home or self-care (01) | DRG 373 ==
LOC: ED 11:42 → 3E 17:56